=== PATIENT | female | born 2000 | race Caucasian/White ===

== ENCOUNTER 2021-12-20 13:34 | Emergency (ER) | payer MEDICAID, SELFPAY ==
[2021-12-20 13:43] VITALS: BP 124/83; PULSE 91; RESP 18; O2SAT 98; BMI 33.1
--- NOTE | 2021-12-20 14:01 | ED.GENADULT ---
HPI - General Adult General Chief complaint: Unspecified Complaint, Adult Stated complaint: Bloody nose for over an hour Time Seen by Provider: 12/20/21 13:38 Source: patient and family Mode of arrival: EMS Limitations: no limitations History of Present Illness HPI narrative: 21-year-old female with a history of ADD, anxiety comes in today secondary to a nosebleed. She states that she was at home today and just not doing anything when her nose started bleeding. She states that it looked like a crime scene in her home she was losing so much blood. She became very frightened that she called the ambulance. She states that she feels very lightheaded now, she states that she can not breathe, and is very anxious. Is not on any blood thinners did start spironolactone recently. Related Data Home Medications Medication Instructions Recorded Confirmed albuterol sulfate 90 mcg/actuation 2 puff inhalation Q4-6H PRN 10/07/21 12/11/21 aerosol inhaler (Ventolin HFA) levonorgestrel-ethinyl estradiol 1 tab PO QDAY 10/07/21 12/11/21 0.1 mg-20 mcg tablet (Aviane) Previous Rx's Medication Instructions Recorded clonazepam 1 mg tablet 1 mg PO BID PRN anxiety #60 tabs 09/08/21 lorazepam 0.5 mg tablet 0.5 mg PO QDAY PRN anxiety #30 tabs 09/08/21 dextroamphetamine-amphetamine ER 30 mg PO QAM #30 caps 09/20/21 30 mg 24hr capsule,extend release (Adderall XR) sertraline 50 mg tablet 100 mg PO QDAY #60 tabs 10/09/21 adapalene 0.1 % topical cream 1 applic topical QHS #45 grams 12/11/21 (Differin) ketoconazole 2 % topical cream 1 applic topical QDAY #60 grams 12/11/21 spironolactone 50 mg tablet 50 mg PO BID #60 tabs 12/11/21 Allergies Allergy/AdvReac Type Severity Reaction Status Date / Time No Known Drug Allergies Allergy Verified 12/11/21 09:45 Review of Systems Status of ROS: Reports: 10 or more systems reviewed and unremarkable except as noted in History and below [facility] Medical History Acne ADH disorder ADHD Anxiety Patient request for diagnostic testing Social History Smoking Status: Never smoker Exam Narrative: Exam Narrative: Well-nourished well-developed patient in no acute distress, is extremely anxious. Alert and oriented. Answers questions appropriately. Patient speaks in full sentences without needing to catch their breath. HEENT: Normocephalic atraumatic. Pupils are equally round reactive to light. Extraocular muscles are intact. Conjunctivae are moist without any icterus noted. Moist mucous membranes. Posterior pharynx is normal, I do not see any blood running down the back of the throat. Patient removed pressure from the nose and there is no active bleeding. The septum appears healthy without any oozing. Neck is soft without any lymphadenopathy or thyromegaly. No masses are appreciated. Patient does not appear pale. Cardiovascular: Heart is regular rate and rhythm S1 and S2 are present without any murmurs. Skin: Well perfused without any obvious rashes. Const: Vital Signs, click to edit/add: Vital Signs - 24 hr 12/20/21 13:43 Pulse Rate [Pulse Oximeter] 91 Respiratory Rate 18 Blood Pressure [Ri ght Upper Arm] 124/83 Pulse Oximetry 98 Oxygen Delivery Me thod Room Air Course Course Hospital Course: Patient remained asymptomatic while she was here without any active bleeding. Vital Signs Vital signs: Initial Vital Signs Pulse Rate 91 12/20/21 13:43 Pulse Rhythm 12/20/21 13:43 Respiratory Rate 18 12/20/21 13:43 Blood Pressure 124/83 12/20/21 13:43 Blood Pressure Mean 96 12/20/21 13:43 Blood Pressure Position Sitting 12/20/21 13:43 Pulse Oximetry 98 12/20/21 13:43 Oxygen Delivery Method 12/20/21 13:43 Vital Signs Pulse Rate 91 12/20/21 13:43 Respiratory Rate 18 12/20/21 13:43 Blood Pressure 124/83 12/20/21 13:43 Pulse Oximetry 98 12/20/21 13:43 Oxygen Delivery Method 12/20/21 13:43 Pulse Rate 91 12/20/21 13:43 Respiratory Rate 18 12/20/21 13:43 Blood Pressure 124/83 12/20/21 13:43 Pulse Oximetry 98 12/20/21 13:43 Oxygen Delivery Method 12/20/21 13:43 Medical Decision Making MDM Narrative Medical decision making narrative: Epistaxis. We discussed applying appropriate pressure if this occurs again. We discussed reasons for follow-up. Discharge Plan Discharge Clinical Impression: Epistaxis Patient Disposition: Home, Self-Care Condition: Improved Additional Instructions: Avoid blowing your nose or manipulating the nose for the remainder of the day. Should the nosebleed started again apply pressure immediately and leave on for 15 minutes before removing. Follow-up with primary care provider next week if you do not feel like things are improving. Prescriptions: No Action spironolactone 50 mg tablet 50 mg PO BID Qty: 60 1RF adapalene [Differin] 0.1 % cream 1 applic topical QHS Qty: 45 0RF ketoconazole 2 % cream 1 applic topical QDAY Qty: 60 0RF lorazepam 0.5 mg tablet 0.5 mg PO QDAY PRN (Reason: anxiety) Qty: 30 0RF clonazepam 1 mg tablet 1 mg PO BID PRN (Reason: anxiety) Qty: 60 0RF dextroamphetamine-amphetamine [Adderall XR] 30 mg capsule,extended release 24hr 30 mg PO QAM Qty: 30 0RF levonorgestrel-ethinyl estrad [Aviane] 0.1-20 mg-mcg tablet 1 tab PO QDAY albuterol sulfate [Ventolin HFA] 90 mcg/actuation HFA aerosol inhaler 2 puff inhalation Q4-6H PRN sertraline 50 mg tablet 100 mg PO QDAY Qty: 60 1RF Follow Up/Referrals: Provider,Not a Local [Primary Care Provider] - Stand Alone Forms: [facility] Info Instructions
== END 2021-12-20 14:22 | disposition home or self-care (01) ==
LOC: ED 14:12
PROVIDERS: Emergency Provider Family Medicine
DX: R04.0 Epistaxis (principal)
CPT/HCPCS: 99282; 99283

== ENCOUNTER 2022-01-28 10:17 | Outpatient (CLI) | payer MEDICAID, SELFPAY | END 2022-01-28 10:18 | disposition home or self-care (01) | LOC: FRMREF 01-30 14:38 | PROVIDERS: Visit Provider Physician Assistant Medical | DX: R30.0 Dysuria (principal); N76.0 Acute vaginitis | CPT/HCPCS: 87086; 87186; 87491; 87591 ==

== ENCOUNTER 2022-04-09 09:50 | Outpatient (CLI) | payer MEDICAID, SELFPAY ==
[2022-04-09 22:19] LABS: Hepatitis B Surface Antigen* Negative (Negative)
[2022-04-09 22:33] LABS: HIV 1/2/P24 Combo Screen* Negative (Negative)
[2022-04-09 22:36] LABS: Hepatitis C Virus Antibody* Negative (Negative)
[2022-04-09 23:17] LABS: Chlamydia DNA Amplified* NOT DETECTED (No Detected); GC DNA Amplified* NOT DETECTED (No Detected)
[2022-04-12 06:27] LABS: Rapid Plasma Reagin (RPR) Non Reactive (Non Reactive)
== END 2022-04-09 09:51 | disposition home or self-care (01) ==
PROVIDERS: Visit Provider Registered Nurse
DX: N92.0 Excessive and frequent menstruation with regular cycle (principal); R39.9 Unspecified symptoms and signs involving the genitourinary system; Z11.3 Encounter for screening for infections with a predominantly sexual mode of transmission
CPT/HCPCS: 84443; 86592; 86703; 86803; 87086; 87340; 87491; 87591

== ENCOUNTER 2022-04-16 16:03 | Outpatient (CLI) | payer MEDICAID, SELFPAY ==
--- NOTE | 2022-04-16 16:00 | CRLHL7_ITS ---
For Patients: As a result of the Century Cures Act, medical imaging exams and procedure reports are released immediately into your electronic medical record. You may view this report before your referring provider. If you have questions, please contact your health care provider. INDICATION: Irregular vaginal bleeding. COMPARISON: None. TECHNIQUE: 2D pan scale and color Doppler images were acquired of the pelvis using a transabdominal and transvaginal approach. FINDINGS: Sonographic images demonstrate a normal size and smooth outer contour of the uterus. The uterus is anteverted in position. The uterus measures 6.9 cm in length by 3.4 cm in AP diameter by 3.8 cm in transverse dimension. The myometrium has uniform echotexture. The endometrial lining measures 5 mm in composite thickness. The right ovary was not visualized. The left ovary measures 4.1 x 2.4 x 3.9 cm (volume 19 cc). Blood flow is present within the left ovary. There are approximately 15 subcentimeter follicles in the left ovary. No free fluid in the cul-de-sac. IMPRESSION: 1. The left ovary is prominent in size with numerous subcentimeter follicles. 2. The right ovary was not visualized. 3. Uterus and endometrial lining within normal limits. Dictated by Shaunna Mcgregor MD @ 04/16/2022 11:13:05 PM (Electronically Signed)
== END 2022-04-16 16:04 | disposition home or self-care (01) ==
LOC: US 16:04
PROVIDERS: Visit Provider Registered Nurse
DX: N92.6 Irregular menstruation, unspecified (principal); N83.02 Follicular cyst of left ovary
CPT/HCPCS: 76830; 76856

== ENCOUNTER 2022-04-28 11:39 | Outpatient (CLI) | payer MEDICAID, SELFPAY ==
[2022-04-28 18:57] LABS: Chlamydia DNA Amplified* NOT DETECTED (No Detected); GC DNA Amplified* NOT DETECTED (No Detected)
== END 2022-04-28 11:40 | disposition home or self-care (01) ==
PROVIDERS: Visit Provider Registered Nurse
DX: R39.9 Unspecified symptoms and signs involving the genitourinary system (principal); N89.8 Other specified noninflammatory disorders of vagina
CPT/HCPCS: 87086; 87491; 87591